=== PATIENT | male | born 1950 | race Asian ===

== ENCOUNTER 2020-11-30 16:51 | Emergency (ER) | payer MEDICARE, OTHER, SELFPAY ==
[2020-11-30] VITALS (98 sets, daily range): BP systolic 30–168; BP diastolic 14–106; PULSE 52–101; RESP 12–27; TEMP 34.8–36.1; O2SAT 44–100; BMI 19.8
--- NOTE | 2020-11-30 | DI.RAD.S_ITS ---
PROCEDURE: XR CHEST 1V INDICATIONS: ET placement TECHNIQUE: One view of the chest was acquired. COMPARISON: [facility], CR, XR CHEST 1V, 11/30/2020, 17:26. FINDINGS: Surgical changes and devices: Endotracheal tube 3.5 cm above the chaira. Lungs and pleura: Lungs are clear. No pleural effusions or pneumothorax. Mediastinum: Mediastinal contours appear unchanged. Calcified aorta. Heart size is prominent. Bones and chest wall: No suspicious bony lesions. Overlying soft tissues appear unremarkable. Right axillary calcification likely vascular. IMPRESSION: Endotracheal tube in the mid to distal trachea in satisfactory position. Lungs appear clear. Dictated by: Ryan Lema M.D. on 11/30/2020 at 20:35 Approved by: Ryan Lema M.D. on 11/30/2020 at 20:37
--- NOTE | 2020-11-30 17:13 | DI.RAD.S_ITS ---
PROCEDURE: XR CHEST 1V INDICATIONS: short of breath TECHNIQUE: One view of the chest was acquired. COMPARISON: None. FINDINGS: Surgical changes and devices: None. Lungs and pleura: Lungs are clear. No pleural effusions or pneumothorax. Mediastinum: Mediastinal contours appear normal. Heart size is enlarged. Bones and chest wall: No suspicious bony lesions. Overlying soft tissues appear unremarkable. IMPRESSION: No acute pulmonary process. Dictated by: Rena Pedro M.D. on 11/30/2020 at 16:45 Approved by: Rena Pedro M.D. on 11/30/2020 at 16:47
--- NOTE | 2020-11-30 17:30 | ED.SOB ---
HPI - SOB/Dyspnea General Chief Complaint: Shortness of Breath/Dyspnea Stated Complaint: short of breath Time Seen by Provider: 11/30/20 16:59 Source: patient and family Limitations: altered mental status History of Present Illness HPI Narrative: Patient is a 70-year-old male who has a history of hypertension diabetes on dialysis she receives dialysis today presenting with generalized weakness and shortness of. he apparently gets oxygen while receiving dialysis then goes home and is not on oxygen. states that today he had his dialysis with oxygen as normal however he then was complaining of needing more oxygen is at the orthopedics office. They went to the orthopedics office after dialysis because he has a chronic ongoing toe wound. states that he has not been ambulatory because of his toe needs a difficult time walking. He now feels like he has to have a bowel movement. He is overall poor historian it is very difficult to get the correct information out of the . He has a fistula on the left which appears that they used it today he however he does have a new fistula that is placed on the right. No blood pressure is to be taken on either arm therefore his blood pressure is to be taken on his leg. I did actually speak with orthopedic physician who saw him just prior to his arrival in the emergency department. She says that he was alert and oriented. 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 She recommended vascular surgery. Apparently when they left that appointment is when the brought him to the emergency department MD Complaint: shortness of breath Related Data Allergies Allergy/AdvReac Type Severity Reaction Status Date / Time No Known Drug Allergies Allergy Verified 11/30/20 17:36 Review of Systems Review of Systems ROS Unobtainable: Unobtainable due to medical condition Patient History Medical History (Updated 11/30/20 @ 22:08 by Kay Alfaro DO) Diabetes Social History Smoking Status: Never smoker Exam Initial Vital Signs Initial Vital Signs: Vital Signs Pulse Rate 52 L 11/30/20 17:12 Pulse Oximetry 93 11/30/20 17:12 Gen.: Alert a week male unable to get out of wheelchair HEENT: Head is atraumatic Neck: Supple no JVD Lungs: Clear bilaterally no respiratory distress Cardiac: Irregularly irregular, femoral and carotid pulses strong and bounding Abdomen: Soft nontender cystomy in place Extremities: No gross bony deformities. He has bilateral arm fistula Neurologic: All alert and oriented x1 head of integrated media strength equal bilaterally no focal deficits Skin: Right toe is dry gangrenous mild erythema no gross drainage Procedures Central Line Placement Right Femoral: Time Out Performed: Yes Patient Placed on Monitor/Pulse Ox: Yes MD Prep: mask, gown and gloves Central Line Prep: Chlorhexidine scrub and sterile drapes applied Local Anesthetic: lidocaine 1% Amount of anesthesia used (mL): 5 Ultrasound Used for Placement: Yes Central Line Lumen Inserted: triple Post Procedure: good blood return, all ports aspirated, flushed, capped and sterile dressing applied Patient Tolerated Procedure: Well Complications: none Intubation Time out performed: Yes sedative: Etomidate Mg Given: 10 paralytic: Rocuronium Mg Given: 75 Laryngoscope: fiber optic video scope ET Tube Size: 7.5 ET Tube Uncuffed: Yes Tube Secured Depth (cm): 25 Tube Secured Location: lips Tube Placement Confirmation: Visualized tube passing through cords, Equal breath sounds bilaterally and Confirmation by capnometry Patient Tolerated Procedure: Well Intubation Complications: hypotension Course Orders Ordered: ED Orders 11/30/20 17:12 Consult to Respiratory Therapy Evaluate & Treat EKG-12 Lead Stat 11/30/20 17:13 XR chest 1V Stat 11/30/20 17:44 CT head/brain wo con Stat 11/30/20 18:00 Complete Blood Count AUTO DIFF Stat Comprehensive Metabolic Panel Stat Magnesium Stat Procalcitonin Stat Troponin & CK Cardiac Panel Stat 11/30/20 18:03 Urinalysis and Microscopic Stat Urine Culture Stat 11/30/20 18:20 Lactate (Lactic Acid) Stat Partial Thromboplastin Time Stat Prothrombin Time INR Stat 11/30/20 19:15 COVID19 Stat 11/30/20 19:22 CT angio chest PE protocol Stat 11/30/20 20:02 ABG [Arterial Blood Gas] Stat 11/30/20 20:20 Blood Culture Stat 11/30/20 20:24 ABG [Arterial Blood Gas] Stat 11/30/20 20:29 CT abdomen pelvis w con Stat Norepinephrine Bitartrate 4 mg (/ Dextrose) 254 mls @ 30.48 mls/hr IV TITRATE MISSY; Protocol Last Titration: 11/30/20 20:12 Dose: 20 mcg/min, 76.2 mls/hr Documented by: Titration: 11/30/20 20:10 Dose: 10 mcg/min, 38.1 mls/hr Documented by: Titration: 11/30/20 19:35 Dose: 8 mcg/min, 30.48 mls/hr Documented by: Admin: 11/30/20 19:22 Dose: 7 mcg/min, 26.67 mls/hr Documented by: ANGELIA Fentanyl 1,000 mcg/ Dextrose 250 mls @ 8.89 mls/hr IV TITRATE MISSY; Protocol Last Admin: 11/30/20 19:48 Dose: 0.7 mcg/kg/hr, 8.89 mls/hr Documented by: ANGELIA Vasopressin 20 unit/ Sodium (Chloride) 101 mls @ 6.06 mls/hr IV TITRATE MISSY Last Admin: 11/30/20 20:23 Dose: 0.04 unit/min, 12.12 mls/hr Documented by: ANGELIA Propofol (Propofol) 1,000 mg in 100 mls @ 1.524 mls/hr IV TITRATE MISSY; Protocol Last Titration: 11/30/20 21:49 Dose: 10 mcg/kg/min, 3.048 mls/hr Documented by: Titration: 11/30/20 21:30 Dose: 5 mcg/kg/min, 1.524 mls/hr Documented by: Titration: 11/30/20 20:00 Dose: 0 mcg/kg/min, 0 mls/hr Documented by: Admin: 11/30/20 19:40 Dose: 5 mcg/kg/min, 1.524 mls/hr Documented by: ANGELIA Sodium Chloride (Normal Saline 0.9%) 1,000 mls @ 1,000 mls/hr IV BOLUS ONE Stop: 11/30/20 22:21 Last Infusion: 11/30/20 19:30 Dose: 0 mls/hr Documented by: Admin: 11/30/20 19:00 Dose: 1,000 mls/hr Documented by: ANGELIA Sodium Chloride (Normal Saline 0.9%) 1,000 mls @ 1,000 mls/hr IV BOLUS ONE Stop: 11/30/20 22:35 Last Admin: 11/30/20 19:20 Dose: 1,000 mls/hr Documented by: ANGELIA Discontinued Medications Epinephrine HCl (Epinephrine 1 Mg/10 Ml Syringe) 0.01 mg IV NOW ONE Stop: 11/30/20 19:46 Last Admin: 11/30/20 19:40 Dose: 0.01 mg Documented by: ANGELIA Epinephrine HCl (Epinephrine 1 Mg/10 Ml Syringe) 0.02 mg IV NOW ONE Stop: 11/30/20 20:06 Last Admin: 11/30/20 20:00 Dose: 0.02 mg Documented by: ANGELIA Epinephrine HCl (Epinephrine 1 Mg/10 Ml Syringe) 0.01 mg IV NOW ONE Stop: 11/30/20 20:09 Last Admin: 11/30/20 20:09 Dose: 0.01 mg Documented by: ANGELIA Etomidate (Etomidate 2 Mg/Ml 10 Ml Vial) 10 mg IV NOW ONE Stop: 11/30/20 20:13 Last Admin: 11/30/20 19:32 Dose: 10 mg Documented by: ANGELIA Cefepime HCl 2 gm/ Sodium (Chloride) 100 mls @ 200 mls/hr IV NOW ONE Stop: 11/30/20 19:10 Last Infusion: 11/30/20 20:16 Dose: 0 mls/hr Documented by: Admin: 11/30/20 19:40 Dose: 200 mls/hr Documented by: ANGELIA Vancomycin HCl (Vancomycin) 750 mg in 150 mls @ 150 mls/hr IV NOW ONE Stop: 11/30/20 20:08 Last Admin: 11/30/20 20:56 Dose: 150 mls/hr Documented by: ANGELIA Rocuronium [place] (Rocuronium 100 Mg/10 Ml Vial) 75 mg IV NOW ONE Stop: 11/30/20 20:15 Last Admin: 11/30/20 19:33 Dose: 75 mg Documented by: ANGELIA Vital Signs Vital signs: Vital Signs - 8 hr 11/30/20 17:12 11/30/20 17:14 11/30/20 17:16 Temperature Pulse Rate 52 L 101 H 99 H Respiratory Rate 19 22 Blood Pressure 45/15 L 41/20 L Pulse Oximetry 93 77 L 11/30/20 17:18 11/30/20 17:21 11/30/20 17:30 Temperature Pulse Rate 96 H 99 H 97 H Respiratory Rate 22 22 21 Blood Pressure 72/37 L 133/56 L Pulse Oximetry 91 77 L 90 L 11/30/20 17:31 11/30/20 17:35 11/30/20 17:36 Temperature 96.9 F L Pulse Rate 93 H 96 H 96 H Respiratory Rate 20 17 22 Blood Pressure 134/82 144/86 H 133/56 L Pulse Oximetry 87 L 93 11/30/20 17:40 11/30/20 17:46 11/30/20 17:48 Temperature Pulse Rate 100 H 95 H 94 H Respiratory Rate 20 24 20 Blood Pressure 142/81 H 80/31 L 64/23 L Pulse Oximetry 88 L 96 11/30/20 17:51 11/30/20 17:55 11/30/20 18:00 Temperature Pulse Rate 94 H 93 H 91 H Respiratory Rate 21 23 22 Blood Pressure 60/27 L 49/15 L Pulse Oximetry 95 97 11/30/20 18:05 11/30/20 18:16 11/30/20 18:25 Temperature Pulse Rate 93 H 92 H 89 Respiratory Rate 20 19 23 Blood Pressure 123/82 168/78 H 134/93 H Pulse Oximetry 80 L 85 L 87 L 11/30/20 18:30 11/30/20 18:36 11/30/20 18:46 Temperature Pulse Rate 91 H 91 H 89 Respiratory Rate 27 H 21 21 Blood Pressure 136/82 142/106 H 86/47 L Pulse Oximetry 86 L 84 L 100 11/30/20 18:50 11/30/20 18:56 11/30/20 19:00 Temperature Pulse Rate 89 88 88 Respiratory Rate 22 21 20 Blood Pressure 78/51 L 94/61 Pulse Oximetry 100 91 92 MDM - SOB/Dyspnea Lab Data Attestation: I reviewed the patient's lab results. Result diagrams: 11/30/20 18:00 11/30/20 18:00 Labs: Lab Results 11/30/20 11/30/20 11/30/20 Range/Units 18:00 18:00 18:00 WBC 13.1 H (4.5-11.0) X10^3/uL RBC 3.32 L (4.5-5.9) X10^6/uL Hgb 11.6 L (13.5-17.5) g/dL Hct 37.3 L (41-53) % MCV 112.4 H (80-100) fL MCH 34.8 H (26-34) PG MCHC 31.0 (30-36) % RDW 20.8 H (11.6-14.8) % Plt Count TNP Neut % (Auto) Not Reportable Lymph % (Auto) Not Reportable [place] % (Auto) Not Reportable Eos % (Auto) Not Reportable Baso % (Auto) Not Reportable Lymph # (Auto) Not Reportable [place] # (Auto) Not Reportable Baso # (Auto) Not Reportable Total Counted 100 Seg Neutrophils % 71.0 H (38-70) % Band Neutrophils % 4.0 (3-7) % Lymphocytes % (Manual) 13.0 L (25-45) % Monocytes % (Manual) 11.0 (2-11) % Basophils % (Manual) 1.0 (0-1) % Neutrophils # (Manual) 9825 H (7688-4135) /uL Nucleated RBCs 4 H ( - 0) #/Diff Platelet Estimate Decreased on smear Plt Morphology Comment RBC Morphology See below Polychromasia 2+ H Poikilocytosis 1+ H Anisocytosis 2+ H Macrocytosis 3+ H PT (10.1-12.7) SECONDS INR (0.9-1.3) APTT (26.4-36.2) SECONDS ABG pH (7.35-7.45) ABG pCO2 (35-45) mmHg ABG pO2 (80-100) mmHg ABG HCO3 (22-26) mmol/L ABG Total CO2 (21-31) mmol/L ABG O2 Saturation (95-100) % ABG Base Excess (-2-2) mmol/L FiO2 Sodium 133 L (137-145) mmol/L Potassium 5.6 H (3.4-5.1) mmol/L Chloride 93 L (98-107) mmol/L Carbon Dioxide 23 (22-32) mmol/L BUN 24 H (9-20) mg/dL Creatinine 4.20 H (0.66-1.25) mg/dL Estimated GFR 14.0 L (>60) mL/min BUN/Creatinine Ratio 5.7 L (6-22) Glucose 148 H (80-110) mg/dL Lactate (0.7-2.1) mmol/L Calcium 7.5 L (8.4-10.2) mg/dL Magnesium 2.0 (1.6-2.3) mg/dL Total Bilirubin 1.4 H (0.2-1.3) mg/dL AST 1364 H (17-59) IU/L ALT 617 H (<50) IU/L Alkaline Phosphatase 171 H (38-126) U/L Total Creatine Kinase 153 (55-170) U/L CK-MB (CK-2) 3.37 H (<2.37) ng/mL CK-MB (CK-2) Rel Index 2.2 (1.5-5.0) % Troponin I 0.383 H* (0.01-0.034) ng/mL Total Protein 6.8 (6.3-8.2) g/dL Albumin 3.8 (3.5-5.0) g/dL Globulin 3.0 (1.7-4.1) g/dL Albumin/Globulin Ratio 1.3 (1.0-2.8) Procalcitonin 0.61 H (<0.5) ng/mL Urine Color Urine Appearance Urine pH (4.5-8.0) Ur Specific [place] (1.000-1.035) Urine Protein (Negative) Urine Glucose (UA) (Negative) g/dL Urine Ketones (NEGATIVE) Urine Occult Blood (Negative) Urine Nitrate (Negative) Urine Bilirubin (NEGATIVE) Urine Urobilinogen (0.2) E.U./dL Ur Leukocyte Esterase (NEGATIVE) Urine RBC (0-5/HPF) Urine WBC (0-5/HPF) Ur Transition Epith Cell (0-5/HPF) Urine Bacteria (None) Urine Mucus (Negative) Ur Culture Indicated? SARS-CoV-2 (PCR) (Negative) 11/30/20 11/30/20 11/30/20 Range/Units 18:03 18:20 18:20 WBC (4.5-11.0) X10^3/uL RBC (4.5-5.9) X10^6/uL Hgb (13.5-17.5) g/dL Hct (41-53) % MCV (80-100) fL MCH (26-34) PG MCHC (30-36) % RDW (11.6-14.8) % Plt Count Neut % (Auto) Lymph % (Auto) [place] % (Auto) Eos % (Auto) Baso % (Auto) Lymph # (Auto) [place] # (Auto) Baso # (Auto) Total Counted Seg Neutrophils % (38-70) % Band Neutrophils % (3-7) % Lymphocytes % (Manual) (25-45) % Monocytes % (Manual) (2-11) % Basophils % (Manual) (0-1) % Neutrophils # (Manual) (0288-4466) /uL Nucleated RBCs ( - 0) #/Diff Platelet Estimate Plt Morphology Comment RBC Morphology Polychromasia Poikilocytosis Anisocytosis Macrocytosis PT 24.8 H (10.1-12.7) SECONDS INR 2.2 H (0.9-1.3) APTT 32 (26.4-36.2) SECONDS ABG pH (7.35-7.45) ABG pCO2 (35-45) mmHg ABG pO2 (80-100) mmHg ABG HCO3 (22-26) mmol/L ABG Total CO2 (21-31) mmol/L ABG O2 Saturation (95-100) % ABG Base Excess (-2-2) mmol/L FiO2 Sodium (137-145) mmol/L Potassium (3.4-5.1) mmol/L Chloride (98-107) mmol/L Carbon Dioxide (22-32) mmol/L BUN (9-20) mg/dL Creatinine (0.66-1.25) mg/dL Estimated GFR (>60) mL/min BUN/Creatinine Ratio (6-22) Glucose (80-110) mg/dL Lactate 12.9 H* (0.7-2.1) mmol/L Calcium (8.4-10.2) mg/dL Magnesium (1.6-2.3) mg/dL Total Bilirubin (0.2-1.3) mg/dL AST (17-59) IU/L ALT (<50) IU/L Alkaline Phosphatase (38-126) U/L Total Creatine Kinase (55-170) U/L CK-MB (CK-2) (<2.37) ng/mL CK-MB (CK-2) Rel Index (1.5-5.0) % Troponin I (0.01-0.034) ng/mL Total Protein (6.3-8.2) g/dL Albumin (3.5-5.0) g/dL Globulin (1.7-4.1) g/dL Albumin/Globulin Ratio (1.0-2.8) Procalcitonin (<0.5) ng/mL Urine Color Yellow Urine Appearance Cloudy Urine pH 8.0 (4.5-8.0) Ur Specific [place] 1.015 (1.000-1.035) Urine Protein 1+ H (Negative) Urine Glucose (UA) Negative (Negative) g/dL Urine Ketones Negative (NEGATIVE) Urine Occult Blood 3+ H (Negative) Urine Nitrate Negative (Negative) Urine Bilirubin Negative (NEGATIVE) Urine Urobilinogen 0.2 (0.2) E.U./dL Ur Leukocyte Esterase 2+ H (NEGATIVE) Urine RBC 0-1/hpf (0-5/HPF) Urine WBC 10-30/hpf H (0-5/HPF) Ur Transition Epith Cell 0-1/hpf (0-5/HPF) Urine Bacteria Many (>30) H (None) Urine Mucus 3+ H (Negative) Ur Culture Indicated? Specimen cultured SARS-CoV-2 (PCR) (Negative) 11/30/20 11/30/20 11/30/20 Range/Units 19:15 20:02 20:24 WBC (4.5-11.0) X10^3/uL RBC (4.5-5.9) X10^6/uL Hgb (13.5-17.5) g/dL Hct (41-53) % MCV (80-100) fL MCH (26-34) PG MCHC (30-36) % RDW (11.6-14.8) % Plt Count Neut % (Auto) Lymph % (Auto) [place] % (Auto) Eos % (Auto) Baso % (Auto) Lymph # (Auto) [place] # (Auto) Baso # (Auto) Total Counted Seg Neutrophils % (38-70) % Band Neutrophils % (3-7) % Lymphocytes % (Manual) (25-45) % Monocytes % (Manual) (2-11) % Basophils % (Manual) (0-1) % Neutrophils # (Manual) (5700-5805) /uL Nucleated RBCs ( - 0) #/Diff Platelet Estimate Plt Morphology Comment RBC Morphology Polychromasia Poikilocytosis Anisocytosis Macrocytosis PT (10.1-12.7) SECONDS INR (0.9-1.3) APTT (26.4-36.2) SECONDS ABG pH 7.39 7.31 L (7.35-7.45) ABG pCO2 22.7 L* 29.1 L (35-45) mmHg ABG pO2 604 H* 448 H* (80-100) mmHg ABG HCO3 14 L 15 L (22-26) mmol/L ABG Total CO2 14 L 15 L (21-31) mmol/L ABG O2 Saturation 100 100 (95-100) % ABG Base Excess -11.0 L -12.0 L (-2-2) mmol/L FiO2 Sodium (137-145) mmol/L Potassium (3.4-5.1) mmol/L Chloride (98-107) mmol/L Carbon Dioxide (22-32) mmol/L BUN (9-20) mg/dL Creatinine (0.66-1.25) mg/dL Estimated GFR (>60) mL/min BUN/Creatinine Ratio (6-22) Glucose (80-110) mg/dL Lactate (0.7-2.1) mmol/L Calcium (8.4-10.2) mg/dL Magnesium (1.6-2.3) mg/dL Total Bilirubin (0.2-1.3) mg/dL AST (17-59) IU/L ALT (<50) IU/L Alkaline Phosphatase (38-126) U/L Total Creatine Kinase (55-170) U/L CK-MB (CK-2) (<2.37) ng/mL CK-MB (CK-2) Rel Index (1.5-5.0) % Troponin I (0.01-0.034) ng/mL Total Protein (6.3-8.2) g/dL Albumin (3.5-5.0) g/dL Globulin (1.7-4.1) g/dL Albumin/Globulin Ratio (1.0-2.8) Procalcitonin (<0.5) ng/mL Urine Color Urine Appearance Urine pH (4.5-8.0) Ur Specific [place] (1.000-1.035) Urine Protein (Negative) Urine Glucose (UA) (Negative) g/dL Urine Ketones (NEGATIVE) Urine Occult Blood (Negative) Urine Nitrate (Negative) Urine Bilirubin (NEGATIVE) Urine Urobilinogen (0.2) E.U./dL Ur Leukocyte Esterase (NEGATIVE) Urine RBC (0-5/HPF) Urine WBC (0-5/HPF) Ur Transition Epith Cell (0-5/HPF) Urine Bacteria (None) Urine Mucus (Negative) Ur Culture Indicated? SARS-CoV-2 (PCR) Negative (Negative) 11/30/20 Range/Units 20:55 WBC (4.5-11.0) X10^3/uL RBC (4.5-5.9) X10^6/uL Hgb (13.5-17.5) g/dL Hct (41-53) % MCV (80-100) fL MCH (26-34) PG MCHC (30-36) % RDW (11.6-14.8) % Plt Count Neut % (Auto) Lymph % (Auto) [place] % (Auto) Eos % (Auto) Baso % (Auto) Lymph # (Auto) [place] # (Auto) Baso # (Auto) Total Counted Seg Neutrophils % (38-70) % Band Neutrophils % (3-7) % Lymphocytes % (Manual) (25-45) % Monocytes % (Manual) (2-11) % Basophils % (Manual) (0-1) % Neutrophils # (Manual) (8109-3939) /uL Nucleated RBCs ( - 0) #/Diff Platelet Estimate Plt Morphology Comment RBC Morphology Polychromasia Poikilocytosis Anisocytosis Macrocytosis PT (10.1-12.7) SECONDS INR (0.9-1.3) APTT (26.4-36.2) SECONDS ABG pH (7.35-7.45) ABG pCO2 (35-45) mmHg ABG pO2 (80-100) mmHg ABG HCO3 (22-26) mmol/L ABG Total CO2 (21-31) mmol/L ABG O2 Saturation (95-100) % ABG Base Excess (-2-2) mmol/L FiO2 Sodium (137-145) mmol/L Potassium (3.4-5.1) mmol/L Chloride (98-107) mmol/L Carbon Dioxide (22-32) mmol/L BUN (9-20) mg/dL Creatinine (0.66-1.25) mg/dL Estimated GFR (>60) mL/min BUN/Creatinine Ratio (6-22) Glucose (80-110) mg/dL Lactate 11.5 H* (0.7-2.1) mmol/L Calcium (8.4-10.2) mg/dL Magnesium (1.6-2.3) mg/dL Total Bilirubin (0.2-1.3) mg/dL AST (17-59) IU/L ALT (<50) IU/L Alkaline Phosphatase (38-126) U/L Total Creatine Kinase (55-170) U/L CK-MB (CK-2) (<2.37) ng/mL CK-MB (CK-2) Rel Index (1.5-5.0) % Troponin I (0.01-0.034) ng/mL Total Protein (6.3-8.2) g/dL Albumin (3.5-5.0) g/dL Globulin (1.7-4.1) g/dL Albumin/Globulin Ratio (1.0-2.8) Procalcitonin (<0.5) ng/mL Urine Color Urine Appearance Urine pH (4.5-8.0) Ur Specific [place] (1.000-1.035) Urine Protein (Negative) Urine Glucose (UA) (Negative) g/dL Urine Ketones (NEGATIVE) Urine Occult Blood (Negative) Urine Nitrate (Negative) Urine Bilirubin (NEGATIVE) Urine Urobilinogen (0.2) E.U./dL Ur Leukocyte Esterase (NEGATIVE) Urine RBC (0-5/HPF) Urine WBC (0-5/HPF) Ur Transition Epith Cell (0-5/HPF) Urine Bacteria (None) Urine Mucus (Negative) Ur Culture Indicated? SARS-CoV-2 (PCR) (Negative) Point of Care Testing Glucose POC 140 Imaging Data Chest x-ray: Radiologist's Impression: PROCEDURE: XR CHEST 1V INDICATIONS: short of breath TECHNIQUE: One view of the chest was acquired. COMPARISON: None. FINDINGS: Surgical changes and devices: None. Lungs and pleura: Lungs are clear. No pleural effusions or pneumothorax. Mediastinum: Mediastinal contours appear normal. Heart size is enlarged. Bones and chest wall: No suspicious bony lesions. Overlying soft tissues appear unremarkable. IMPRESSION: No acute pulmonary process. Dictated by: Rena Pedro M.D. on 11/30/2020 at 16:45 CXR 2: Radiologist's Impression: PROCEDURE: XR CHEST 1V INDICATIONS: ET placement TECHNIQUE: One view of the chest was acquired. COMPARISON: [facility], CR, XR CHEST 1V, 11/30/2020, 17:26. FINDINGS: Surgical changes and devices: Endotracheal tube 3.5 cm above the chiara. Lungs and pleura: Lungs are clear. No pleural effusions or pneumothorax. Mediastinum: Mediastinal contours appear unchanged. Calcified aorta. Heart size is prominent. Bones and chest wall: No suspicious bony lesions. Overlying soft tissues appear unremarkable. Right axillary calcification likely vascular. IMPRESSION: Endotracheal tube in the mid to distal trachea in satisfactory position. Lungs appear clear. Dictated by: Ryan Lema M.D. on 11/30/2020 at 20:35 CT scan - head: Radiologist's Impression: PROCEDURE: CT HEAD/BRAIN WO CON INDICATIONS: decrased mental status TECHNIQUE: Noncontrast 4.5 mm thick angled axial sections acquired from the foramen magnum to the vertex, with coronal and sagittal reformats. For radiation dose reduction, the following was used: automated exposure control, adjustment of mA and/or kV according to patient size. COMPARISON: None. FINDINGS: Image quality: Fair. CSF spaces: Basal cisterns are patent. No extra-axial fluid collections. Ventricles are normal in size and shape. Brain: No midline shift. No intracranial masses or hemorrhage. Bill-white matter interface appear within normal limits. Dense calcification in the vertebral arteries. Skull and face: Calvarium and visualized facial bones are intact, without suspicious lesions. Sinuses: Mucosal thickening in the left sphenoid sinus. Mastoids are clear. IMPRESSION: No gross abnormality identified. Dictated by: Ryan Lema M.D. on 11/30/2020 at 21:19 CT scan - abdomen/pelvis: Radiologist's Impression: ADDENDUMThis report includes an Addendum and supersedes previous reports for this exam. PROCEDURE: CT ABDOMEN PELVIS W CON INDICATIONS: spetic sick TECHNIQUE: After the administration of intravenous contrast, 5 mm thick sections acquired from the diaphragm to the symphysis. 5 mm coronal and sagittal reformats were acquired. For radiation dose reduction, the following was used: automated exposure control, adjustment of mA and/or kV according to patient size. COMPARISON: [facility], CT, CT ANGIO CHEST PE PROTOCOL, 11/30/2020, 20:29. FINDINGS: Image quality: Good. Bolus timing is late arterial with lack of opacification of the portal vein. ABDOMEN: Lung bases: Small to moderate bilateral pleural effusions. Bibasilar airspace opacity which has the appearance of compressive atelectasis. Heart size is enlarged. There is severe reflux of contrast into the hepatic veins with suspected reflux into the hepatic sinusoids, (6/). Enteric tube the gastric fundus. Solid organs: Liver is within normal limits in size. Severe hepatic vein reflux. Evaluation for focal lesions is limited. Gallbladder is surgically absent. Intrahepatic bile ducts in the right lobe are prominent. Pancreas enhances normally. Spleen is normal in size and enhancement. Nodular thickening of the right adrenal gland, (03/31). This could be due to hyperplasia versus small neoplasm. Bilateral renal atrophy. Left kidney midpole indeterminate mass measuring at 0.9 cm, (04/03). 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 There is less than expected enhancement of the transplant kidney. No hydronephrosis. Peritoneum and bowel: No bowel obstruction. Right abdomen ostomy. Diverticulosis. Mild ascites. No pneumoperitoneum. Nodes and vessels: Left periaortic node measuring 1.8 x 1.5 cm, (632). Circumferential calcified atherosclerotic plaque in the abdominal aorta. No aneurysm. The celiac artery is diminutive. Common hepatic artery is diminutive. Right groin central venous line with the tip in the left external iliac vein. Trace amount of air in the right groin. Miscellaneous: Ventral abdominal wall scar. Subcutaneous gas in the left anterior abdomen likely due to subcutaneous injections. Anasarca. PELVIS: Genitourinary: Bladder is not well seen. Multiple clips in the pelvis. Miscellaneous: No inguinal hernias or adenopathy. Bones: No suspicious bony lesions. Moderate DDD. No vertebral body compression fractures. IMPRESSION: 1. Cardiomegaly with marked hepatic vein reflux. Small to moderate bilateral pleural effusions. Findings concerning for heart failure. 2. Mild ascites. Anasarca. 3. Left lower quadrant transplant kidney. Less than expected enhancement. No hydronephrosis. Atrophic [place] kidneys. 4. No bowel obstruction demonstrated. Enteric tube in the stomach. Right abdomen ostomy. No pneumoperitoneum. Dictated by: Ryan Lema M.D. on 11/30/2020 at 21:22 Approved by: Ryan Lema M.D. on 11/30/2020 at 21:38 ADDENDUM: 5. Enlarged left retroperitoneal lymph nodes. Nonspecific but could be due to malignancy. 6. Subcentimeter left [place] kidney lesion is indeterminate. Dictated by: Ryan Lema M.D. on 11/30/2020 at 21:46 Approved by: Ryan Lema M.D. on 11/30/2020 at 21:47 Addendum Dictated By:Ryan Lema MDAddendum Signed By:Addendum Cosigned By:DD/ TD/TT: 11/30/20 PROCEDURE: CT ABDOMEN PELVIS W CON INDICATIONS: spetic sick TECHNIQUE: After the administration of intravenous contrast, 5 mm thick sections acquired from the diaphragm to the symphysis. 5 mm coronal and sagittal reformats were acquired. For radiation dose reduction, the following was used: automated exposure control, adjustment of mA and/or kV according to patient size. COMPARISON: [facility], CT, CT ANGIO CHEST PE PROTOCOL, 11/30/2020, 20:29. FINDINGS: Image quality: Good. Bolus timing is late arterial with lack of opacification of the portal vein. ABDOMEN: Lung bases: Small to moderate bilateral pleural effusions. Bibasilar airspace opacity which has the appearance of compressive atelectasis. Heart size is enlarged. There is severe reflux of contrast into the hepatic veins with suspected reflux into the hepatic sinusoids, (03/25). Enteric tube the gastric fundus. Solid organs: Liver is within normal limits in size. Severe hepatic vein reflux. Evaluation for focal lesions is limited. Gallbladder is surgically absent. Intrahepatic bile ducts in the right lobe are prominent. Pancreas enhances normally. Spleen is normal in size and enhancement. Nodular thickening of the right adrenal gland, (03/31). This could be due to hyperplasia versus small neoplasm. Bilateral renal atrophy. Left kidney midpole indeterminate mass measuring at 0.9 cm, (04/03). 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 There is less than expected enhancement of the transplant kidney. No hydronephrosis. Peritoneum and bowel: No bowel obstruction. Right abdomen ostomy. Diverticulosis. Mild ascites. No pneumoperitoneum. Nodes and vessels: Left periaortic node measuring 1.8 x 1.5 cm, (6/32). Circumferential calcified atherosclerotic plaque in the abdominal aorta. No aneurysm. The celiac artery is diminutive. Common hepatic artery is diminutive. Right groin central venous line with the tip in the left external iliac vein. Trace amount of air in the right groin. Miscellaneous: Ventral abdominal wall scar. Subcutaneous gas in the left anterior abdomen likely due to subcutaneous injections. Anasarca. PELVIS: Genitourinary: Bladder is not well seen. Multiple clips in the pelvis. Miscellaneous: No inguinal hernias or adenopathy. Bones: No suspicious bony lesions. Moderate DDD. No vertebral body compression fractures. IMPRESSION: 1. Cardiomegaly with marked hepatic vein reflux. Small to moderate bilateral pleural effusions. Findings concerning for heart failure. 2. Mild ascites. Anasarca. 3. Left lower quadrant transplant kidney. Less than expected enhancement. No hydronephrosis. Atrophic [place] kidneys. 4. No bowel obstruction demonstrated. Enteric tube in the stomach. Right abdomen ostomy. No pneumoperitoneum. Dictated by: Ryan Lema M.D. on 11/30/2020 at 21:22 CT scan - chest: Radiologist's Impression: PROCEDURE: CT ANGIO CHEST PE PROTOCOL INDICATIONS: hypoxia TECHNIQUE: After the administration of intravenous contrast, 2 mm thick sections acquired from the pulmonary apices to the posterior costophrenic angles. 3-dimensional maximum intensity projection (MIP) coronal and sagittal reformats were then acquired through the thorax. For radiation dose reduction, the following was used: automated exposure control, adjustment of mA and/or kV according to patient size. COMPARISON: [facility], CT, CT ABDOMEN PELVIS W CON, 11/30/2020, 20:29. FINDINGS: Image quality: Good. Pulmonary arteries: Pulmonary arteries are normal in size, and demonstrate no intraluminal filling defects to suggest central pulmonary embolism. Lungs and pleura: Diffuse interlobular septal thickening. Mild the dependent airspace opacity left bilaterally. Low lung volumes. Left lower lobe calcified granuloma. Endotracheal tube in the midtrachea. Secretions in the upper trachea. There are is a small areas of distal mucus airway plugging in the right lower lobe suspected, (201). Moderate bilateral pleural effusions. No pneumothorax. Mediastinum: Heart size is enlarged, trace pericardial effusion. Three-vessel coronary artery calcifications. No mediastinal or hilar adenopathy. Thoracic aorta is normal in caliber and enhancement. Esophagus is normal in caliber, without hiatal hernia. Bones and chest wall: No suspicious bony lesions. Small bone island in the mid thoracic spine vertebral body. Ribs and thoracic spine appear intact throughout. Thyroid gland is unremarkable. No axillary or supraclavicular adenopathy. Gynecomastia. Abdomen: Please see separately dictated CT abdomen and pelvis. Contrast reflux into the intrahepatic IVC and hepatic veins. Ascites. Enteric tube coursing into the stomach. IMPRESSION: 1. No central pulmonary embolism. 2. Moderate bilateral pleural effusions. 3. Dependent airspace opacity bilaterally. This most likely represents compressive atelectasis. A component in the right lung base may be due to micro aspiration/pneumonia. 4. Cardiomegaly and marked reflux into the hepatic veins. Concerning for heart failure. Dictated by: Ryan Lema M.D. on 11/30/2020 at 21:38 ECG Data Attestation: I personally reviewed and interpreted this ECG as follows: Prior ECG tracings: not available for review Interpretation: EKG atrial fibrillation rate [address] changes MDM Narrative Medical decision making narrative: Patient initially of seems stable but complaining that he cannot breathe and would like oxygen. Lungs are clear initial chest x-ray is negative. 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 Blood pressure cuff placed on ankle and thighs, blood pressure readings are quite variable along with pulse oximeter. Pulse oximeter probes are placed on finger and ear. He does have but the best wave form on the ear. Central line placed in the right femoral Levophed started. Patient signed up stating that he could not breathe lungs still sounded clear. Lactic acid came back quite elevated at 12.9. Unclear exactly what this is from. Concern for sepsis/cardiogenic shock. Difficult to get accurate blood pressure reading on patient and monitoring. Discussed with and patient both are agreeable for intubation. Patient was electively intubated. Patient is started on vasopressin to help maintain blood pressure. Initial ABG showed a PaO2 of is 600 and for which does not correlate with his pulse oximeter. A repeat ABG on the ventilator with the pulse oximeter correlating and 40% showed a PaO2 of 448. I spoke with Anesthesiology in regards to arterial line for better management of blood pressure. Unfortunately it is physically impossible to monitor in art line in the emergency department. Anesthesiology was in the Emergency Room willing to put in line, but there is no way to monitor. The patient is empirically given cefepime and vancomycin for infection. Possible UTI. Troponin also elevated. The patient is unlikely clearing the lactic acid due to renal failure. As Levophed is titrated up and vasopressin added pulse oximeter does seem to read better with O2 sats 88- 89% Records from [facility] have been received and reviewed. He was admitted 11/10/2020 for left upper arm dialysis graft. He apparently does have a history of congestive heart failure with EF of 20% Director [employer] is Dr. valenzuela 22:30 Dr. Foss at [place] updated on symptoms in test results kindly accepts patient for transfer Critical Care Time Critical Care Time Critical Care Time: Yes Total Critical Care Time: 180 Attestation: The high probability of a clinically significant, sudden or life threatening deterioration of the [cardiovascular] system(s) required my full and direct attention, intervention and personal management. The aggregate critical care time was 180 minutes. This time is in addition to time spent performing reported procedures but includes the following: [x] Data Review and interpretation [x] Patient assessment and monitoring of vital signs [x] Documentation [x] Medication orders and management Discharge Plan Departure Patient Disposition: [facility] Clinical Impression: Cardiogenic shock, Septic shock, Respiratory failure Referrals: Cayden Trujillo DO [Primary Care Provider] -
--- NOTE | 2020-11-30 17:44 | DI.CT.S_ITS ---
PROCEDURE: CT HEAD/BRAIN WO CON INDICATIONS: decrased mental status TECHNIQUE: Noncontrast 4.5 mm thick angled axial sections acquired from the foramen magnum to the vertex, with coronal and sagittal reformats. For radiation dose reduction, the following was used: automated exposure control, adjustment of mA and/or kV according to patient size. COMPARISON: None. FINDINGS: Image quality: Fair. CSF spaces: Basal cisterns are patent. No extra-axial fluid collections. Ventricles are normal in size and shape. Brain: No midline shift. No intracranial masses or hemorrhage. Bill-white matter interface appear within normal limits. Dense calcification in the vertebral arteries. Skull and face: Calvarium and visualized facial bones are intact, without suspicious lesions. Sinuses: Mucosal thickening in the left sphenoid sinus. Mastoids are clear. IMPRESSION: No gross abnormality identified. Dictated by: Ryan Lema M.D. on 11/30/2020 at 21:19 Approved by: Ryan Lema M.D. on 11/30/2020 at 21:22
--- NOTE | 2020-11-30 17:49 | PC.NURSE ---
per pt's pt had high heart rate today so pts dialysis was stopped 30min earlier than it should have been. pt was at md office about an hour ago and was acting appropriate. pt now c/o feeling tired. pt verbally responsive, slow to answer, oriented, does not open eyes.
[2020-11-30 18:17] LABS: Hematocrit 37.3 % (41-53); Hemoglobin 11.6 g/dL (13.5-17.5); Mean Corpuscular Hemoglobin 34.8 PG (26-34); Mean Corpuscular Volume 112.4 fL (80-100); Red Blood Cell Count 3.32 X10^6/uL (4.5-5.9); Red Cell Distribution Width 20.8 % (11.6-14.8); White Blood Cell Count 13.1 X10^3/uL (4.5-11.0)
[2020-11-30 18:22] LABS: Add Manual Diff / Slide Review YES
[2020-11-30 18:30] LABS: BUN Creatinine Ratio 5.7 (6-22); Blood Urea Nitrogen 24 mg/dL (9-20); Calcium 7.5 mg/dL (8.4-10.2); Carbon Dioxide 23 mmol/L (22-32); Chloride 93 mmol/L (98-107); Creatine Kinase 153 U/L (55-170); Glucose 148 mg/dL (80-110); Sodium 133 mmol/L (137-145)
[2020-11-30 18:31] LABS: Neutrophils Absolute Manual 9825 /uL (3000-5900); Nucleated Red Blood Cells 4 #/Diff; Platelet Estimate Decreased on smear; Total Cells Counted 100
[2020-11-30 18:32] LABS: Anisocytosis 2+; HEMOLYSIS 56 (0-50); Macrocytosis 3+; Poikilocytosis 1+; Potassium 5.6 mmol/L (3.4-5.1)
[2020-11-30 18:33] LABS: Polychromasia 2+
[2020-11-30 18:42] LABS: Albumin 3.8 g/dL (3.5-5.0); Albumin Globulin Ratio 1.3 (1.0-2.8); Alkaline Phosphatase 171 U/L (38-126); Bilirubin Total 1.4 mg/dL (0.2-1.3); Total Protein 6.8 g/dL (6.3-8.2)
[2020-11-30 18:45] LABS: CKMB % Relative Index 2.2 % (1.5-5.0); Creatine Kinase MB 3.37 ng/mL (<2.37); Troponin I 0.383 ng/mL (0.01-0.034)
[2020-11-30 18:47] LABS: Procalcitonin 0.61 ng/mL (<0.5)
[2020-11-30 19:00] LABS: Lactate (Lactic Acid) 12.9 mmol/L (0.7-2.1)
[2020-11-30] MEDS: SODIUM CHLORIDE 0.9% 1,000 ML 1000 ML IV ×2 (19:00→19:20)
[2020-11-30] MEDS: LIDOCAINE 2% INJ MDV 20 ML (19:00)
--- NOTE | 2020-11-30 19:06 | PC.NURSE ---
assisted dr franklin with left femoral access. pt tolerated well
--- NOTE | 2020-11-30 19:07 | PC.NURSE ---
Frances lynn initiated
--- NOTE | 2020-11-30 19:08 | PC.NURSE ---
pt appears to be resting on stretcher. pt responds to verbal, is oriented.
[2020-11-30 19:09] LABS: INR 2.2 (0.9-1.3); Prothrombin Time 24.8 SECONDS (10.1-12.7)
[2020-11-30 19:12] LABS: PTT Partial Thromboplastin Tim 32 SECONDS (26.4-36.2)
[2020-11-30 19:15] LABS: Alanine Aminotransferase 617 IU/L (<50)
[2020-11-30] MEDS: NOREPINEPHRINE 4 MG in DEXTROSE 5% IN WATER 250 ML 26.67 ML IV (19:22)
--- NOTE | 2020-11-30 19:22 | DI.CT.S_ITS ---
PROCEDURE: CT ANGIO CHEST PE PROTOCOL INDICATIONS: hypoxia TECHNIQUE: After the administration of intravenous contrast, 2 mm thick sections acquired from the pulmonary apices to the posterior costophrenic angles. 3-dimensional maximum intensity projection (MIP) coronal and sagittal reformats were then acquired through the thorax. For radiation dose reduction, the following was used: automated exposure control, adjustment of mA and/or kV according to patient size. COMPARISON: [facility], CT, CT ABDOMEN PELVIS W CON, 11/30/2020, 20:29. FINDINGS: Image quality: Good. Pulmonary arteries: Pulmonary arteries are normal in size, and demonstrate no intraluminal filling defects to suggest central pulmonary embolism. Lungs and pleura: Diffuse interlobular septal thickening. Mild the dependent airspace opacity left bilaterally. Low lung volumes. Left lower lobe calcified granuloma. Endotracheal tube in the midtrachea. Secretions in the upper trachea. There are is a small areas of distal mucus airway plugging in the right lower lobe suspected, (). Moderate bilateral pleural effusions. No pneumothorax. Mediastinum: Heart size is enlarged, trace pericardial effusion. Three-vessel coronary artery calcifications. No mediastinal or hilar adenopathy. Thoracic aorta is normal in caliber and enhancement. Esophagus is normal in caliber, without hiatal hernia. Bones and chest wall: No suspicious bony lesions. Small bone island in the mid thoracic spine vertebral body. Ribs and thoracic spine appear intact throughout. Thyroid gland is unremarkable. No axillary or supraclavicular adenopathy. Gynecomastia. Abdomen: Please see separately dictated CT abdomen and pelvis. Contrast reflux into the intrahepatic IVC and hepatic veins. Ascites. Enteric tube coursing into the stomach. IMPRESSION: 1. No central pulmonary embolism. 2. Moderate bilateral pleural effusions. 3. Dependent airspace opacity bilaterally. This most likely represents compressive atelectasis. A component in the right lung base may be due to micro aspiration/pneumonia. 4. Cardiomegaly and marked reflux into the hepatic veins. Concerning for heart failure. Dictated by: Ryan Lema M.D. on 11/30/2020 at 21:38 Approved by: Ryan Lema M.D. on 11/30/2020 at 21:45
[2020-11-30 19:24] LABS: Aspartate Aminotransferase 1364 IU/L (17-59)
[2020-11-30] MEDS: ETOMIDATE 2 MG/ML 10 ML VIAL 10 MG IV (19:32)
[2020-11-30] MEDS: ROCURONIUM 100 MG/10 ML VIAL 75 MG IV (19:33)
[2020-11-30 19:40] LABS: Appearance Urine UA CLOUDY; Bilirubin Urine UA NEGATIVE (NEGATIVE); Color Urine UA YELLOW; Glucose Urine UA NEGATIVE (Negative); Ketones Urine UA NEGATIVE (NEGATIVE); Leukocyte Esterase Urine UA 2+ (NEGATIVE); Nitrite Urine UA NEGATIVE (Negative); Occult Blood Urine UA 3+ (Negative); Protein Urine UA 1+ (Negative); Specific Gravity Urine UA 1.015 (1.000-1.035); Urobilinogen Urine UA 0.2 E.U./dL (0.2)
[2020-11-30] MEDS: propofoL 1,000 MG/100 ML VIAL 1.524 MG IV (19:40)
[2020-11-30] MEDS: CEFEPIME 2 GM in SODIUM CHLORIDE 0.9% 100 ML 200 ML IV (19:40)
[2020-11-30] MEDS: EPINEPHrine 1 MG/10 ML SYRINGE IV ×3 (19:40→20:09)
[2020-11-30] MEDS: SODIUM CHLORIDE 0.9% 1,000 ML 300 ML IV (19:45)
[2020-11-30] MEDS: fentaNYL 1,000 MCG in DEXTROSE 5% IN WATER 230 ML 8.89 ML IV (19:48)
[2020-11-30 19:51] LABS: Bacteria Urine Many (>30); Culture Indicated Urine Specimen Cultured; Mucus Urine 3+ (Negative); RBC Urine 0-1/HPF (0-5/HPF); Transitional Epi Cells Urine 0-1/HPF (0-5/HPF); WBC Urine 10-30/HPF (0-5/HPF)
[2020-11-30 19:52] LABS: COVID19 -Nasal RAPID Negative (Negative)
[2020-11-30 20:11] LABS: HCO3 ABG 14 mmol/L (22-26); Oxygen Saturation ABG 100 % (95-100); PCO2 ABG 22.7 mmHg (35-45); PO2 ABG 604 mmHg (80-100); TCO2 ABG 14 mmol/L (21-31); pH ABG 7.39 (7.35-7.45)
[2020-11-30] MEDS: VASOPRESSIN 20 UNIT in SODIUM CHLORIDE 0.9% 100 ML 12.12 ML IV (20:23)
[2020-11-30 20:24] LABS: Reflexed Lactate in 2 Hours Y
--- NOTE | 2020-11-30 20:29 | DI.CT.S_ITS ---
PROCEDURE: CT ABDOMEN PELVIS W CON INDICATIONS: spetic sick TECHNIQUE: After the administration of intravenous contrast, 5 mm thick sections acquired from the diaphragm to the symphysis. 5 mm coronal and sagittal reformats were acquired. For radiation dose reduction, the following was used: automated exposure control, adjustment of mA and/or kV according to patient size. COMPARISON: [facility], CT, CT ANGIO CHEST PE PROTOCOL, 11/30/2020, 20:29. FINDINGS: Image quality: Good. Bolus timing is late arterial with lack of opacification of the portal vein. ABDOMEN: Lung bases: Small to moderate bilateral pleural effusions. Bibasilar airspace opacity which has the appearance of compressive atelectasis. Heart size is enlarged. There is severe reflux of contrast into the hepatic veins with suspected reflux into the hepatic sinusoids, (/). Enteric tube the gastric fundus. Solid organs: Liver is within normal limits in size. Severe hepatic vein reflux. Evaluation for focal lesions is limited. Gallbladder is surgically absent. Intrahepatic bile ducts in the right lobe are prominent. Pancreas enhances normally. Spleen is normal in size and enhancement. Nodular thickening of the right adrenal gland, (03/31). This could be due to hyperplasia versus small neoplasm. Bilateral renal atrophy. Left kidney midpole indeterminate mass measuring at 0.9 cm, (6/). 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 There is less than expected enhancement of the transplant kidney. No hydronephrosis. Peritoneum and bowel: No bowel obstruction. Right abdomen ostomy. Diverticulosis. Mild ascites. No pneumoperitoneum. Nodes and vessels: Left periaortic node measuring 1.8 x 1.5 cm, (/32). Circumferential calcified atherosclerotic plaque in the abdominal aorta. No aneurysm. The celiac artery is diminutive. Common hepatic artery is diminutive. Right groin central venous line with the tip in the left external iliac vein. Trace amount of air in the right groin. Miscellaneous: Ventral abdominal wall scar. Subcutaneous gas in the left anterior abdomen likely due to subcutaneous injections. Anasarca. PELVIS: Genitourinary: Bladder is not well seen. Multiple clips in the pelvis. Miscellaneous: No inguinal hernias or adenopathy. Bones: No suspicious bony lesions. Moderate DDD. No vertebral body compression fractures. IMPRESSION: 1. Cardiomegaly with marked hepatic vein reflux. Small to moderate bilateral pleural effusions. Findings concerning for heart failure. 2. Mild ascites. Anasarca. 3. Left lower quadrant transplant kidney. Less than expected enhancement. No hydronephrosis. Atrophic [place] kidneys. 4. No bowel obstruction demonstrated. Enteric tube in the stomach. Right abdomen ostomy. No pneumoperitoneum. Dictated by: Ryan Lema M.D. on 11/30/2020 at 21:22 Approved by: Ryan Lema M.D. on 11/30/2020 at 21:38
[2020-11-30 20:37] LABS: HCO3 ABG 15 mmol/L (22-26); Oxygen Saturation ABG 100 % (95-100); PCO2 ABG 29.1 mmHg (35-45); PO2 ABG 448 mmHg (80-100); TCO2 ABG 15 mmol/L (21-31); pH ABG 7.31 (7.35-7.45)
[2020-11-30] MEDS: VANCOMYCIN 750 MG/150 ML PIGGYBACK 150 MG IV (20:56)
[2020-11-30 21:15] LABS: Lactate 2HR (Lactic Acid Rflx) 11.5 mmol/L (0.7-2.1)
--- NOTE | 2020-11-30 22:23 | PC.NURSE ---
Pts , Esteban, went home to [place]; RN to notify her of transfer plans once established. Her number is [phone].
--- NOTE | 2020-11-30 22:38 | PC.NURSE ---
RN left voicemail for pts Esteban regarding pending transfer to [place].
[2020-11-30] MEDS: ASPIRIN 81 MG CHEW TAB 324 MG PO (23:12)
--- NOTE | 2020-11-30 23:44 | PC.NURSE ---
[facility] declined to transport patient via ground transport d\t low SBP although they we informed that the vital signs have been very inconsistent and the patient has been stable.
[2020-11-30] MEDS: NOREPINEPHRINE 4 MG in DEXTROSE 5% IN WATER 250 ML 76.2 ML IV (23:58)
[2020-12-01] VITALS (8 sets, daily range): BP systolic 61–80; BP diastolic 44–52; PULSE 87–89; RESP 18; TEMP 36.1–36.4; O2SAT 97–99
--- NOTE | 2020-12-01 00:33 | PC.NURSE ---
[facility] arrived to transport patient to [facility].
[2020-12-08 13:02] LABS: Fractionated Inspired Oxygen 100
[2020-12-08 13:07] LABS: Fractionated Inspired Oxygen 100
== END 2020-12-01 00:40 | disposition short-term general hospital (02) ==
PROVIDERS: Emergency Provider Emergency Medicine; PCP Family Medicine
DX: R57.0 Cardiogenic shock (principal); A41.9 Sepsis, unspecified organism; J96.90 Respiratory failure, unspecified, unspecified whether with hypoxia or hypercapnia; I10 Essential (primary) hypertension; E11.9 Type 2 diabetes mellitus without complications; Z20.822 Contact with and (suspected) exposure to COVID-19; Z99.2 Dependence on renal dialysis; I95.9 Hypotension, unspecified
CPT/HCPCS: 31500; 36573; 36600; 70450; 71045; 71275; 74177; 80053; 81001; 82550; 82553; 82805; 82962; 83605; 83735; 84145; 84484; 85007; 85025; 85610; 85730; 87040; 87077; 87086; 87186; 87635; 93005; 94002; 94799; 96365; 96366; 96367; 99285; 99291; 99292; C9803; J0171; J0692; J2704; J3010; Q9967